=== PATIENT | female | born 1970 | race African-American/Black ===

== ENCOUNTER 2017-11-09 11:31 | Emergency (ER) | payer OTHER ==
[~2017-11-09] VITALS: Ht 162.6 cm; Wt 62.1 kg
[2017-11-09 11:40] VITALS: TEMP 97.5
[2017-11-09 13:25] VITALS: BP 128/76
== END 2017-11-09 13:25 | disposition home or self-care (01) ==
LOC: ED 11:31
DX: M54.5 Low back pain (principal); M25.531 Pain in right wrist; W18.39XA Other fall on same level, initial encounter; Y92.098 Other place in other non-institutional residence as the place of occurrence of the external cause
CPT/HCPCS: 96372; 99283; J1885

== ENCOUNTER 2020-07-09 11:14 | Outpatient (CLI) | payer OTHER | END 2020-07-09 21:52 | disposition home or self-care (01) | LOC: RAD 11:14 | PROVIDERS: ATTEND Family Medicine | DX: R00.2 Palpitations (principal); M54.10 Radiculopathy, site unspecified; M54.9 Dorsalgia, unspecified; Z85.3 Personal history of malignant neoplasm of breast; M81.0 Age-related osteoporosis without current pathological fracture; E55.9 Vitamin D deficiency, unspecified; Z80.0 Family history of malignant neoplasm of digestive organs; M51.34 Other intervertebral disc degeneration, thoracic region | CPT/HCPCS: 93005 ==

== ENCOUNTER 2020-12-20 09:29 | Outpatient (CLI) | payer OTHER | END 2020-12-20 20:57 | disposition home or self-care (01) | LOC: CT 09:29 | PROVIDERS: ATTEND Family Medicine | DX: R10.9 Unspecified abdominal pain (principal); Z85.3 Personal history of malignant neoplasm of breast; Z80.0 Family history of malignant neoplasm of digestive organs | CPT/HCPCS: 82565; 84520; Q9963 ==

== ENCOUNTER 2021-08-25 10:49 | Outpatient (CLI) | payer OTHER | END 2021-08-25 20:08 | disposition home or self-care (01) | LOC: MAMMO 10:49 | PROVIDERS: ATTEND Family Medicine | DX: Z08 Encounter for follow-up examination after completed treatment for malignant neoplasm (principal); Z85.3 Personal history of malignant neoplasm of breast; Z78.0 Asymptomatic menopausal state | CPT/HCPCS: G0279 ==

== ENCOUNTER 2021-09-19 09:36 | Outpatient (CLI) | payer OTHER | END 2021-09-19 20:45 | disposition home or self-care (01) | LOC: US 09:36 | PROVIDERS: ATTEND Family Medicine | DX: R22.1 Localized swelling, mass and lump, neck (principal); R53.83 Other fatigue; R63.5 Abnormal weight gain ==

== ENCOUNTER 2022-06-04 20:27 | Emergency (ER) | payer OTHER ==
[~2022-06-04] VITALS: Ht 162.6 cm; Wt 62.1 kg
[2022-06-04 22:10] VITALS: BP 121/64; TEMP 98.2
== END 2022-06-04 22:10 | disposition home or self-care (01) ==
LOC: ED 20:27
PROC: 0HQDXZZ Repair Right Lower Arm Skin, External Approach (ICD-10-PCS; principal; 2022-06-04)
DX: S61.511A Laceration without foreign body of right wrist, initial encounter (principal); W26.0XXA Contact with knife, initial encounter; Y93.G1 Activity, food preparation and clean up; Y92.89 Other specified places as the place of occurrence of the external cause
CPT/HCPCS: 90471; 90715; 99283

== ENCOUNTER 2022-06-13 21:33 | Emergency (ER) | payer OTHER ==
[~2022-06-13] VITALS: Ht 162.6 cm; Wt 62.1 kg
[2022-06-13 23:26] VITALS: BP 129/36
== END 2022-06-13 23:38 | disposition home or self-care (01) ==
LOC: ED 21:33
DX: S61.511D Laceration without foreign body of right wrist, subsequent encounter (principal); X58.XXXD Exposure to other specified factors, subsequent encounter; Y92.89 Other specified places as the place of occurrence of the external cause; Z48.02 Encounter for removal of sutures
CPT/HCPCS: 99283

== ENCOUNTER → 2022-06-13 | Outpatient (CLI) | payer OTHER | LOC: RAD 21:40 | PROVIDERS: ATTEND Family Medicine | DX: M54.59 Other low back pain (principal); Z85.3 Personal history of malignant neoplasm of breast; M25.552 Pain in left hip; M79.652 Pain in left thigh; M79.605 Pain in left leg; Z08 Encounter for follow-up examination after completed treatment for malignant neoplasm ==

== ENCOUNTER 2022-08-21 12:26 | Outpatient (CLI) | payer OTHER | END 2022-08-21 18:59 | disposition home or self-care (01) | LOC: RAD 12:26 | PROVIDERS: ATTEND Family Medicine | DX: Z78.0 Asymptomatic menopausal state (principal); Z13.820 Encounter for screening for osteoporosis ==

== ENCOUNTER 2022-08-22 14:03 | Outpatient (CLI) | payer OTHER | END 2022-08-22 19:22 | disposition home or self-care (01) | LOC: RAD 14:03 | PROVIDERS: ATTEND Family Medicine | DX: M25.531 Pain in right wrist (principal); M79.641 Pain in right hand; M54.10 Radiculopathy, site unspecified ==

== ENCOUNTER 2022-12-28 11:09 | Outpatient (CLI) | payer OTHER | END 2022-12-28 21:50 | disposition home or self-care (01) | LOC: RAD 11:09 | PROVIDERS: ATTEND Family Medicine | DX: M25.552 Pain in left hip (principal); M25.551 Pain in right hip ==

== ENCOUNTER 2023-01-04 15:13 | Outpatient (CLI) | payer OTHER | END 2023-01-04 19:00 | disposition home or self-care (01) | LOC: RAD 15:13 | PROVIDERS: ATTEND Family Medicine | DX: M25.561 Pain in right knee (principal); M25.562 Pain in left knee ==